=== PATIENT | female | born 1945 | race Caucasian/White ===

== ENCOUNTER → 2017-01-10 | Outpatient (CLI) | payer BC ==
[~2017-01-10] MED LIST: ALBUAER19 INH; ASPI81CH2 PO; ASTN NAE; CHOL100010 PO; CITRICEL PO; EFF375 PO; EFF50 PO; ESOM20CA PO; FLUT0.15 NAE; FLVHFA44 INH; FRN PO; ICAPS PO; LOSA1TAB PO; MULT-506 PO; OMEG10007 PO; PROB1TAB16 PO; SYSTANE ULTRA OP
--- NOTE | 2017-01-10 13:22 | DIAGNOSTIC IMAGING REPORT ---
CHEST 2 VIEWS ROUTINE HISTORY: Atypical chest pain. COMPARISON: None. FINDINGS: The lungs are clear. Cardiac silhouette is normal in size. No pleural effusions. No pneumothorax. IMPRESSION: No acute process. Electronically signed by: Robert Lynch M.D. 01/10/2017 1:21 PM Dictated Date/Time: 01/10/2017 1:19 PM
== END | disposition home or self-care (01) ==
LOC: C.RAD1850 13:05
PROVIDERS: ATTEND Internal Medicine
DX: R07.89 Other chest pain (principal)

== ENCOUNTER → 2017-04-30 | Outpatient (CLI) | payer BC | END | disposition home or self-care (01) | LOC: C.LAB1850 12:19 | PROVIDERS: ATTEND Internal Medicine | DX: R07.89 Other chest pain (principal) ==

== ENCOUNTER → 2017-09-01 | Outpatient (CLI) | payer BC ==
--- NOTE | 2017-09-02 07:36 | MAMMOGRAPHY REPORT ---
BILATERAL DIGITAL SCREENING MAMMOGRAM WITH CAD: 09/01/2017 CLINICAL HISTORY: Routine screening. Patient has no complaints. TECHNIQUE: Bilateral CC and MLO views were obtained. Current study was also evaluated with a Compute r Aided Detection (CAD) system. COMPARISON: Comparison is made to exams dated: 08/30/2016 mammogram, 08/28/2015 mammogram, 08/25/2014 mammogram, 08/24/2013 mammogram, 08/17/2012 mammogram, and 08/07/2011 mammogram - [facility]. BREAST COMPOSITION: There are scattered areas of fibroglandular density in both breasts. FINDINGS: There are large benign rim calcifications in the left breast, and a grouping of punctate m icrocalcifications in the right upper outer quadrant that appears stable dating back to at least 07/18, therefore likely benign. No new suspicious mass, architectural distortion or cluster of micro calcifications is seen. IMPRESSION: ACR BI-RADS CATEGORY 2: BENIGN There is no mammographic evidence of malignancy. A 1 year screening mammogram is recommended. The pa tient will receive written notification of the results. Approximately 10% of breast cancers are not detected with mammography. A negative mammographic report should not delay biopsy if a clinically suggestive mass is present. Chari Flower M.D. ay/:09/01/2017 15:07:11 Blankbook Stitching Machine Operator: Fang Martinez, [facility] letter sent: Normal 1/2 BI-RADS Code: ACR BI-RADS Category 2: Benign
== END | disposition home or self-care (01) ==
LOC: C.MAMM 11:04
PROVIDERS: ATTEND Internal Medicine
DX: Z12.31 Encounter for screening mammogram for malignant neoplasm of breast (principal)

== ENCOUNTER → 2017-09-15 | Outpatient (CLI) | payer BC ==
[2017-09-15 10:57] LABS: BASO % 0.3 %; BASO ABS # 0.01 K/uL (0-0.2); COMPLETE YES; EOS % 4.1 %; HEMATOCRIT 41.8 % (37-47); IG% 0.3 %; LYMPH % 25.3 %; MEAN CELL VOLUME 93.7 fL (80-100); MEAN CORPUSCULAR HEMOGLOBIN 31.4 pg (25-34); MEAN CORPUSCULAR HGB CONC 33.5 g/dl (32-36); MEAN PLATELET VOLUME 10.9 fL (7.4-10.4); MONO % 10.9 %; NEUT % 59.1 %; PLATELET COUNT 221 K/uL (130-400); RED BLOOD COUNT 4.46 M/uL (4.2-5.4); WHITE BLOOD COUNT 3.95 K/uL (4.8-10.8)
[2017-09-15 11:23] LABS: ALT/SGPT 25 U/L (12-78); AST/SGOT 20 U/L (15-37); BLOOD UREA NITROGEN 20 mg/dl (7-18); BUN/CREATININE RATIO 25.1 (10-20); CALCIUM 8.9 mg/dl (8.5-10.1); CARBON DIOXIDE 32 mmol/L (21-32); CHLORIDE 107 mmol/L (98-107); CHOLESTEROL 211 mg/dl (0-200); GLUCOSE 103 mg/dl (70-99); SODIUM 142 mmol/L (136-145); TRIGLYCERIDES 104 mg/dl (0-150); VERY LOW DENSITY LIPOPROT CALC 21 mg/dl
[2017-09-15 11:35] LABS: CHOLESTEROL/HDL RATIO 3.6; HDL CHOLESTEROL 58 mg/dl; LDL CHOLESTEROL CALCULATED 132 mg/dl
== END | disposition home or self-care (01) ==
LOC: C.LAB1850 09:55
PROVIDERS: ATTEND Internal Medicine
DX: E78.5 Hyperlipidemia, unspecified (principal); I10 Essential (primary) hypertension; R07.89 Other chest pain

== ENCOUNTER → 2017-09-30 | Outpatient (CLI) | payer BC ==
--- NOTE | 2017-09-30 12:25 | DIAGNOSTIC IMAGING REPORT ---
SI JOINTS 3 OR MORE VIEWS, L-SPINE MIN 4 VIEWS ROUTINE HISTORY: 71 years-old Female M54.5 Low back [id number] acute low back pain. No reported trauma. COMPARISON: None available TECHNIQUE: 3 views of the SI joints and 5 views of the lumbar spine FINDINGS: SI JOINTS: Mild to moderate degenerative changes of the bilateral SI joints and femoral acetabular joints. There is no acute fracture, dislocation or erosive changes to suggest sacroiliitis. Phleboliths of the pelvis are noted. LUMBAR SPINE: There are 5 lumbar type vertebral segments present. No spondylolysis or spondylolisthesis. Moderate to severe facet arthropathy at L4-L5 and L5-S1. No compression deformity. Moderate multilevel intervertebral disc space narrowing with mild multilevel endplate spurring. There is atherosclerosis of the aorta. Moderate stool Throughout suggests constipation. IMPRESSION: 1. No acute fracture or subluxation of the lumbar spine or sacroiliac joints. 2. Moderate to severe facet arthropathy at L4-L5 and L5-S1. Moderate multilevel intervertebral disc space narrowing and mild multilevel endplate spurring. The above report was generated using voice recognition software. It may contain grammatical, syntax or spelling errors. Electronically signed by: Ajay Kilgore M.D. 09/30/2017 12:23 PM Dictated Date/Time: 09/30/2017 12:21 PM
== END | disposition home or self-care (01) ==
LOC: C.RAD1850 11:49
PROVIDERS: ATTEND Physician Assistant
DX: M54.5 Low back pain (principal)

== ENCOUNTER 2018-01-12 08:15 | Emergency (ER) | payer BC ==
[~2018-01-12] VITALS: Ht 162.6 cm; Wt 60.8 kg
[2018-01-12] MEDS ORDERED: SODIUM CHLORIDE 0.9% 1000ML 1,000 ML IV STA (08:26)
[2018-01-12 08:28] VITALS: TEMP 36.4; O2SAT 99; Ht 162.6 cm; Wt 60.8 kg
--- NOTE | 2018-01-12 08:32 | EMERGENCY ROOM VISIT NOTE ---
History Report prepared by Jed: Louis Moya Under the Supervision of: Dr. Baltazar Hall D.O. First contact with patient: 08:21 Chief Complaint: SYNCOPE Stated Complaint: SYNCOPE History of Present Illness The patient is a 72 year old female who presents to the Emergency Room with complaints of 1 episode of syncope that occurred about 1 hour ago. She has a past medical history of hypertension, migraines, cystic ovaries, and a bilateral oophorectomy. Over the past three days, the patient has been experiencing upper respiratory symptoms including a dry cough, sinus congestion , and generalized body cramps. She notes that she has had a decreased PO intake , solids and liquids, over this time as well. This morning when she attempted to get up out of bed, she suddenly felt dizzy and clammy. She then lost consciousness, falling forward. Her states that she hit the floor "pretty hard." She denies any headaches, chest pain, shortness of breath, nausea , vomiting, abdominal pain, diarrhea, melena, hematochezia, or leg swelling. This has never happened to her before. She denies any known problems with her electrolytes. Source of History: patient Onset: 1 hour ago Position: other (Global) Symptom Intensity: Quality: other (syncope) Timing: resolved Associated Symptoms: + cough, No headache, No chest pain, No SOB, No nausea , No vomiting, No abdominal pain, No melena, No hematochezia, No diarrhea Note: She is also experiencing sinus congestion with generalized body cramping. Review of Systems See HPI for pertinent positives & negatives. A total of 10 systems reviewed and were otherwise negative. Past Medical & Surgical Medical Problems: (1) HTN (hypertension) (2) Migraine Surgical Problems: (1) H/O bilateral oophorectomy Family History Patient reports no known family medical history. Social History Smoking Status: Never Smoker Smokeless Tobacco Use: No Drug Use: none Marital Status: Housing Status: lives with significant other Occupation Status: retired Current/Historical Medications Scheduled Aspirin (Aspirin), 81 MG PO QAM Cholecalciferol (D 1999), 2,000 UNITS PO DAILY Fish Oil ([place]-3), 1 CAP PO QAM Fluticasone Propionate (Nasal) (Flonase Allergy Relief), 1 SPRAY JOSE QAM Losartan Potassium (Cozaar), 25 MG PO QAM Multivitamin (Multivitamin), 1 TAB PO QAM Probiotic Product (Probiotic), 1 TAB PO QAM Venlafaxine Hcl (Effexor), 75 MG PO DAILY Scheduled PRN Azelastine Hcl (Astelin Nasal [place]), 1-2 SPRAYS JOSE QAM PRN for Seasonal Allergies Allergies Coded Allergies: No Known Allergies (Unverified , 01/12/18) Physical Exam Vital Signs Date Time Temp Pulse Resp B/P (MAP) Pulse Ox O2 Delivery O2 Flow Rate FiO2 01/12/18 11:53 69 17 136/66 97 01/12/18 11:00 67 16 137/63 97 Room Air 01/12/18 10:00 66 14 132/71 97 Room Air 01/12/18 08:52 66 13 114/57 96 Room Air 71 114/56 72 105/55 01/12/18 08:28 36.4 64 16 115/68 99 Room Air 01/12/18 08:28 99 Room Air 01/12/18 08:26 63 Physical Exam GENERAL: Patient is awake, alert, and in no acute distress. Patient is resting comfortably and showing no signs of anxiety EYES: The conjunctivae are clear. The pupils are round and reactive. EARS, NOSE, MOUTH AND THROAT: The nose is without any evidence of any deformity. Mucous membranes are moist tongue is midline NECK: The neck is nontender and supple. RESPIRATORY: Normal respiratory effort is noted there is no evidence of wheezing rhonchi or rales CARDIOVASCULAR: Regular rate and rhythm noted there no murmurs rubs or gallops normal S1 normal S2 GASTROINTESTINAL: The abdomen is soft. Bowel sounds are present in all quadrants. Abdomen is nontender BACK: No midline tenderness or or step-off noted range of motion in flexion extension as well as rotation no signs of muscle spasm noted MUSCULOSKELETAL/EXTREMITIES: There is no evidence of gross deformity full range of motion is noted in the hips and shoulders SKIN: There is no obvious evidence of any rash. There are no petechiae, pallor or cyanosis noted. NEUROLOGIC: Patient is awake alert and oriented x3 strength is symmetric patellar reflexes are 2+ bilaterally Medical Decision & Procedures ER Provider Diagnostic Interpretation: Radiology results as stated below per my review and radiologist interpretation: CHEST ONE VIEW PORTABLE HISTORY: 72 years-old Female EVALUATE ALTERED MENTAL STATUS/WEAKNESS acutely altered mental status with weakness and syncope COMPARISON: Chest radiographs to 06/03/2017 TECHNIQUE: Portable AP view of the chest FINDINGS: Cardiomediastinal and hilar silhouettes are within normal limits. There is no pneumothorax, pleural effusion, focal airspace consolidation or overt pulmonary edema. The bones of the chest appear grossly intact. IMPRESSION: No acute process. The above report was generated using voice recognition software. It may contain grammatical, syntax or spelling errors. Electronically signed by: Ajay Kilgore M.D. 01/12/2018 8:42 AM Dictated Date/Time: 01/12/2018 8:41 AM Laboratory Results 01/12/18 09:00 Red Blood Count 4.39, Mean Corpuscular Volume 93.4, Mean Corpuscular Hemoglobin 31.4, Mean Corpuscular Hemoglobin Concent 33.7, Mean Platelet Volume 10.9, Neutrophils (%) (Auto) 76.1, Lymphocytes (%) (Auto) 12.3, Monocytes (%) (Auto) 10.2, Eosinophils (%) (Auto) 1.2, Basophils (%) (Auto) 0.2, Neutrophils # (Auto ) 4.35, Lymphocytes # (Auto) 0.70, Monocytes # (Auto) 0.58, Eosinophils # (Auto ) 0.07, Basophils # (Auto) 0.01 01/12/18 09:00 Test 01/12/18 09:00 01/12/18 10:50 White Blood Count 5.71 K/uL (4.8-10.8) Red Blood Count 4.39 M/uL (4.2-5.4) Hemoglobin 13.8 g/dL (12.0-16.0) Hematocrit 41.0 % (37-47) Mean Corpuscular Volume 93.4 fL (80-100) Mean Corpuscular Hemoglobin 31.4 pg (25-34) Mean Corpuscular Hemoglobin Concent 33.7 g/dl (32-36) Platelet Count 111 K/uL (130-400) Mean Platelet Volume 10.9 fL (7.4-10.4) Neutrophils (%) (Auto) 76.1 % Lymphocytes (%) (Auto) 12.3 % Monocytes (%) (Auto) 10.2 % Eosinophils (%) (Auto) 1.2 % Basophils (%) (Auto) 0.2 % Neutrophils # (Auto) 4.35 K/uL (1.4-6.5) Lymphocytes # (Auto) 0.70 K/uL (1.2-3.4) Monocytes # (Auto) 0.58 K/uL (0.11-0.59) Eosinophils # (Auto) 0.07 K/uL (0-0.5) Basophils # (Auto) 0.01 K/uL (0-0.2) RDW Standard Deviation 42.8 fL (36.4-46.3) RDW Coefficient of Variation 12.6 % (11.5-14.5) Immature Granulocyte % (Auto) 0.0 % Immature Granulocyte # (Auto) 0.00 K/uL (0.00-0.02) Prothrombin Time 10.1 SECONDS (9.0-12.0) Prothromb Time International Ratio 1.0 (0.9-1.1) Activated Partial Thromboplast Time 24.3 SECONDS (21.0-31.0) Partial Thromboplastin Ratio 0.9 Anion Gap 7.0 mmol/L (3-11) Est Creatinine Clear Calc Drug Dose 47.4 ml/min Estimated GFR () 73.0 Estimated GFR (Non- 63.0 BUN/Creatinine Ratio 16.6 (10-20) Calcium Level 8.4 mg/dl (8.5-10.1) Magnesium Level 2.0 mg/dl (1.8-2.4) Total Bilirubin 0.4 mg/dl (0.2-1) Direct Bilirubin 0.1 mg/dl (0-0.2) Aspartate Amino Transf (AST/SGOT) 24 U/L (15-37) Alanine Aminotransferase (ALT/SGPT) 20 U/L (12-78) Alkaline Phosphatase 74 U/L (45-117) Total Creatine Kinase 63 U/L (26-192) Creatine Kinase MB 0.7 ng/ml (0.5-3.6) Creatine Kinase MB Ratio 1.1 (0-3.0) Troponin I < 0.015 ng/ml (0-0.045) Total Protein 6.6 gm/dl (6.4-8.2) Albumin 3.3 gm/dl (3.4-5.0) Thyroid Stimulating Hormone (TSH) 1.250 uIu/ml (0.300-4.500) Influenza Type A Antigen Neg for Influ A (NEG) Influenza Type B Antigen POS for Influ B (NEG) Urine Color YELLOW Urine Appearance CLEAR (CLEAR) Urine pH 7.5 (4.5-7.5) Urine Specific [place] 1.007 (1.000-1.030) Urine Protein NEG (NEG) Urine Glucose (UA) NEG (NEG) Urine Ketones NEG (NEG) Urine Occult Blood NEG (NEG) Urine Nitrite NEG (NEG) Urine Bilirubin NEG (NEG) Urine Urobilinogen NEG (NEG) Urine Leukocyte Esterase NEG (NEG) Laboratory results per my review. Medications Administered Medications (Trade) Dose Ordered Sig/Tucker Route Start Time Stop Time Status Last Admin Dose Admin Sodium Chloride 1,000 ml @ 999 mls/hr Q1H1M STAT IV 01/12/18 08:26 01/12/18 09:26 DC 01/12/18 09:04 999 MLS/HR ECG Per My Interpretation Indication: syncope Rate (beats per minute): 66 Rhythm: normal sinus Findings: T-wave inversion (Lateral), other (No PVC) Comparison ECG Date: 12/10/2010 Change: Findings are new ED Course 0821: The patient was evaluated in room B12. A complete history and physical examination were performed. 0826: Ordered NSS 1,000 ml @ 999 mls/hr IV 1105: The patient is feeling significantly better at this time. 1145: Upon reevaluation, the patient is resting. I discussed the results and treatment plan with her. She verbalized agreement of the treatment plan. She was discharged home. Medical Decision Differential diagnosis: Etiologies such as vasovagal event, infection, hypoglycemia, electrolyte abnormalities, cardiac sources, intracerebral event, toxicologic, neurologic, as well as others were entertained. Nursing notes reviewed. Additional history is obtained from the patient significant other. The patient is a 72-year-old female who presented to emergency department after having a syncopal episode. The patient presented to the emergency department after having a syncopal episode. She has been having a few days of febrile illness and feeling ill. The patient did not have any focal neurologic deficits. I discussed the patient's laboratory and radiographic studies with her. She was treated with IV fluids and was feeling much better on subsequent reevaluation. She was found to have a flu swab that was positive. The patient was encouraged to rest and avoid any strenuous activity. I also encouraged her to follow-up with her primary care physician for further evaluation and for possible further workup for syncope. I also encouraged her to return to the emergency department immediately if symptoms change worsen or the need arises. Medication Reconcilliation Current Medication List: was personally reviewed by me Blood Pressure Screening Patient's blood pressure: Normal blood pressure Blood pressure disposition: Did not require urgent referral Impression Primary Impression: Influenza Additional Impression: Syncope Scribe Attestation The scribe's documentation has been prepared under my direction and personally reviewed by me in its entirety. I confirm that the note above accurately reflects all work, treatment, procedures, and medical decision making performed by me. Departure Information Dispostion Home / Self-Care Referrals Baltazar Wilson M.D. (PCP) Forms HOME CARE DOCUMENTATION FORM, IMPORTANT VISIT INFORMATION Patient Instructions ED Flu, My [facility], Syncope Additional Instructions Drink plenty of clear liquids. Continue using Motrin and Tylenol as directed for fever and body aches. Follow-up with your family doctor for reevaluation. Return to the emergency department immediately if symptoms change worsening of the need arises. Problem Qualifiers Additional Impression: Syncope Syncope type: unspecified Qualified Codes: R55 - Syncope and collapse
--- NOTE | 2018-01-12 08:43 | DIAGNOSTIC IMAGING REPORT ---
CHEST ONE VIEW PORTABLE HISTORY: 72 years-old Female EVALUATE ALTERED MENTAL STATUS/WEAKNESS acutely altered mental status with weakness and syncope COMPARISON: Chest radiographs to 06/03/2017 TECHNIQUE: Portable AP view of the chest FINDINGS: Cardiomediastinal and hilar silhouettes are within normal limits. There is no pneumothorax, pleural effusion, focal airspace consolidation or overt pulmonary edema. The bones of the chest appear grossly intact. IMPRESSION: No acute process. The above report was generated using voice recognition software. It may contain grammatical, syntax or spelling errors. Electronically signed by: Ajay Kilgore M.D. 01/12/2018 8:42 AM Dictated Date/Time: 01/12/2018 8:41 AM
[2018-01-12 09:14] LABS: BASO % 0.2 %; BASO ABS # 0.01 K/uL (0-0.2); EOS % 1.2 %; EOS ABS # 0.07 K/uL (0-0.5); HEMOGLOBIN 13.8 g/dL (12.0-16.0); LYMPH % 12.3 %; MEAN CELL VOLUME 93.4 fL (80-100); MEAN CORPUSCULAR HEMOGLOBIN 31.4 pg (25-34); MEAN CORPUSCULAR HGB CONC 33.7 g/dl (32-36); MEAN PLATELET VOLUME 10.9 fL (7.4-10.4); MONO % 10.2 %; MONO ABS # 0.58 K/uL (0.11-0.59); NEUT % 76.1 %; NEUT ABS # 4.35 K/uL (1.4-6.5); PLATELET COUNT 111 K/uL (130-400); RED CELL DISTRIBUTION WIDTH CV 12.6 % (11.5-14.5); RED CELL DISTRIBUTION WIDTH SD 42.8 fL (36.4-46.3); WHITE BLOOD COUNT 5.71 K/uL (4.8-10.8)
[2018-01-12 09:26] LABS: PTT PATIENT 24.3 SECONDS (21.0-31.0)
[2018-01-12 09:29] LABS: ALBUMIN 3.3 gm/dl (3.4-5.0); ALT/SGPT 20 U/L (12-78); BLOOD UREA NITROGEN 15 mg/dl (7-18); CALCIUM 8.4 mg/dl (8.5-10.1); CARBON DIOXIDE 29 mmol/L (21-32); GLUCOSE 135 mg/dl (70-99); POTASSIUM 3.7 mmol/L (3.5-5.1); SODIUM 137 mmol/L (136-145)
[2018-01-12] MEDS ORDERED: VENL75TA4 PO (09:37)
[2018-01-12] MEDS ORDERED: CHOL1TAB76 PO (09:38)
[2018-01-12 09:40] LABS: ALKALINE PHOSPHATASE 74 U/L (45-117); AST/SGOT 24 U/L (15-37); CKMB 0.7 ng/ml (0.5-3.6); TOTAL PROTEIN 6.6 gm/dl (6.4-8.2)
[2018-01-12 10:47] LABS: INFLUENZA B ANTIGEN POS for Influ B (NEG)
[2018-01-12 11:53] VITALS: BP 136/66; PULSE 69; O2SAT 97
== END 2018-01-12 11:57 | disposition home or self-care (01) ==
LOC: EDBD 08:15 → C.EDB 08:16
DX: J11.1 Influenza due to unidentified influenza virus with other respiratory manifestations (principal); R55 Syncope and collapse; I10 Essential (primary) hypertension; G43.909 Migraine, unspecified, not intractable, without status migrainosus; Z79.82 Long term (current) use of aspirin

== ENCOUNTER 2018-01-15 21:05 | Emergency (ER) | payer BC ==
[~2018-01-15] VITALS: Ht 162.6 cm; Wt 59.2 kg
[~2018-01-15 21:05] MED LIST changes: -ALBUAER19 INH; -CHOL100010 PO; +CHOL1TAB76 PO; -CITRICEL PO; -EFF375 PO; -EFF50 PO; -ESOM20CA PO; -FLVHFA44 INH; -FRN PO; -ICAPS PO; -SYSTANE ULTRA OP; +VENL75TA4 PO
[2018-01-15 21:14] VITALS: TEMP 36.6; O2SAT 95; Ht 162.6 cm; Wt 59.2 kg
[2018-01-15] MEDS ORDERED: ARTISOL12 OP (22:51)
[2018-01-15] MEDS ORDERED: MULT-190 PO (22:51)
[2018-01-15 22:54] LABS: BASO % 0.3 %; BASO ABS # 0.01 K/uL (0-0.2); HEMATOCRIT 40.8 % (37-47); HEMOGLOBIN 14.1 g/dL (12.0-16.0); IG# 0.01 K/uL (0.00-0.02); LYMPH ABS # 0.96 K/uL (1.2-3.4); MEAN CELL VOLUME 91.7 fL (80-100); MEAN CORPUSCULAR HEMOGLOBIN 31.7 pg (25-34); MEAN CORPUSCULAR HGB CONC 34.6 g/dl (32-36); MEAN PLATELET VOLUME 10.3 fL (7.4-10.4); MONO % 12.1 %; MONO ABS # 0.43 K/uL (0.11-0.59); NEUT % 60.3 %; NEUT ABS # 2.15 K/uL (1.4-6.5); PLATELET COUNT 175 K/uL (130-400); RED CELL DISTRIBUTION WIDTH CV 12.2 % (11.5-14.5); RED CELL DISTRIBUTION WIDTH SD 41.6 fL (36.4-46.3); WHITE BLOOD COUNT 3.56 K/uL (4.8-10.8)
--- NOTE | 2018-01-15 22:56 | DIAGNOSTIC IMAGING REPORT ---
CHEST ONE VIEW PORTABLE CLINICAL HISTORY: 72 years-old Female presenting with EVALUATE WEAKNESS. TECHNIQUE: Portable upright AP view of the chest was obtained. COMPARISON: 01/12/2018. FINDINGS: Cardiomediastinal silhouette normal. Lungs and pleural spaces clear. Osseous structures normal. Upper abdomen normal. IMPRESSION: 1. No acute cardiopulmonary disease. Electronically signed by: Chano Peryr M.D. 01/15/2018 10:55 PM Dictated Date/Time: 01/15/2018 10:54 PM
--- NOTE | 2018-01-15 23:08 | DIAGNOSTIC IMAGING REPORT ---
HEAD WITHOUT CONTRAST (CT) CLINICAL HISTORY: 72 years-old Female presenting with EVALUATE WEAKNESS. TECHNIQUE: Multidetector CT imaging of the head was performed without the use of intravenous contrast. IV contrast: None. A dose lowering technique was used consistent with the principles of ALARA (as low as reasonably achievable). COMPARISON: 12/09/2010. CT DOSE (mGy.cm): The estimated cumulative dose is 844.62 mGy.cm. FINDINGS: Heating And Cooling Technician topogram: Unremarkable. Ventricles and sulci normal in size. Brain parenchyma normal in appearance with preserved kline-white differentiation. No mass effect or midline shift. No hemorrhage or acute territorial infarct. No extra-axial fluid collection. Paranasal sinuses and mastoid air cells clear. Calvarium intact. IMPRESSION: 1. No acute intracranial abnormality. Electronically signed by: Chano Perry M.D. 01/15/2018 11:06 PM Dictated Date/Time: 01/15/2018 11:04 PM
[2018-01-15 23:20] LABS: ALBUMIN 3.5 gm/dl (3.4-5.0); CALCIUM 8.6 mg/dl (8.5-10.1); CREATININE 0.67 mg/dl (0.60-1.20); POTASSIUM 3.7 mmol/L (3.5-5.1)
[2018-01-15 23:30] LABS: TOTAL PROTEIN 7.1 gm/dl (6.4-8.2)
[2018-01-15 23:49] VITALS: BP 196/86; PULSE 76
[2018-01-15] MEDS ORDERED: LORAZEPAM 0.5 MG TAB SL STA (23:54)
--- NOTE | 2018-01-16 01:07 | EMERGENCY ROOM VISIT NOTE ---
History Report prepared by Jed: Nieves Alexander Under the Supervision of: Dr. Lenin Paz D.O. First contact with patient: 22:17 Chief Complaint: FALL Stated Complaint: TWITCHING IN UPPER BODY, FALL, HIT HEAD History of Present Illness The patient is a 72 year old female who presents to the Emergency Room with complaints of intermittent body twitching beginning this morning. The patient states she was diagnosed with the flu on Friday. She reports that she had a cough and a fever. On Friday morning, she had an episode of a fall where she hit her head. She reports she came into the ED on Friday for her flu like symptoms and didn't tell the ED physician about her fall. The patient reports her flu symptoms have since resolved but now she is having twitching. She reports her twitching is only present when she is resting. Movement does result twitching. There is no pain associated with it. She has never had this before. Pt denies change in vision, headache, neck pain, fevers, chest pain, shortness of breath, nausea, vomiting, diarrhea, pain with urination, and melena. Source of History: patient Onset: this morning Position: other (generalized) Quality: other (body twitching) Timing: intermittent Associated Symptoms: No fevers, No neck pain, No chest pain, No SOB, No nausea, No vomiting, No urinary symptoms Review of Systems See HPI for pertinent positives & negatives. A total of 10 systems reviewed and were otherwise negative. Past Medical & Surgical Medical Problems: (1) HTN (hypertension) (2) Migraine Surgical Problems: (1) H/O bilateral oophorectomy Family History Patient reports no known family medical history. Social History Smoking Status: Never Smoker Drug Use: none Marital Status: Housing Status: lives with significant other Occupation Status: retired Current/Historical Medications Scheduled Artificial Tear Solution (Artificial Tears), 1 DROPS OP BID Aspirin (Aspirin), 81 MG PO HS Cholecalciferol (D 1999), 2,000 UNITS PO DAILY Fish Oil ([place]-3), 1 CAP PO QAM Fluticasone Propionate (Nasal) (Flonase Allergy Relief), 1 SPRAY JOSE QAM Losartan Potassium (Cozaar), 25 MG PO QAM Multivitamin (Multivitamin), 1 TAB PO QAM Ocuvite Preservision (Ocuvite Preservision), 1 TAB PO DAILY Probiotic Product (Probiotic), 1 TAB PO QAM Venlafaxine Hcl (Effexor), 75 MG PO DAILY Scheduled PRN Azelastine Hcl (Astelin Nasal [place]), 1-2 SPRAYS JOSE QAM PRN for Seasonal Allergies Allergies Coded Allergies: No Known Allergies (Unverified , 01/15/18) Physical Exam Vital Signs Date Time Temp Pulse Resp B/P (MAP) Pulse Ox O2 Delivery O2 Flow Rate FiO2 01/16/18 00:06 01/15/18 23:49 74 162/93 76 184/96 76 196/86 01/15/18 22:41 68 01/15/18 21:14 36.6 76 18 180/98 95 Room Air Physical Exam GENERAL: Sitting up in bed, alert, well appearing, intermittent twitching of the neck/head, talking in full sentences, well nourished, no distress, non- toxic EYE EXAM: normal conjunctiva. PERRL and EOM's intact. OROPHARYNX: no exudate, no erythema, lips, buccal mucosa, and tongue normal and mucous membranes are moist HEAD: Bruising over left frontal region. NECK: supple, no nuchal rigidity, no adenopathy, non-tender LUNGS: Clear to auscultation. Normal chest wall mechanics HEART: no murmurs, S1 normal and S2 normal ABDOMEN: abdomen soft, non-tender, normo-active bowel sounds, no masses, no rebound or guarding. BACK: Back is symmetrical on inspection and there is no deformity, no midline tenderness, no CVA tenderness. SKIN: no rashes and no bruising UPPER EXTREMITIES: upper extremities are grossly normal. LOWER EXTREMITIES: No pitting edema. NEURO EXAM: Normal sensorium, cranial nerves II-XII intact, normal speech, no weakness of arms, no weakness of legs. No drift. Finger to nose intact. Gross sensation intact. No twitching with voluntary movements/when distracted. Medical Decision & Procedures ER Provider Diagnostic Interpretation: Radiology results as stated below per my review and the radiologist's interpretation: CHEST ONE VIEW PORTABLE FINDINGS: Cardiomediastinal silhouette normal. Lungs and pleural spaces clear. Osseous structures normal. Upper abdomen normal. IMPRESSION: 1. No acute cardiopulmonary disease. HEAD WITHOUT CONTRAST (CT) FINDINGS: [employer] topogram: Unremarkable. Ventricles and sulci normal in size. Brain parenchyma normal in appearance with preserved kline-white differentiation. No mass effect or midline shift. No hemorrhage or acute territorial infarct. No extra-axial fluid collection. Paranasal sinuses and mastoid air cells clear. Calvarium intact. IMPRESSION: 1. No acute intracranial abnormality. Electronically signed by: Chano Perry M.D. Electronically signed by: Chano Perry M.D. Laboratory Results 01/15/18 22:45 Red Blood Count 4.45, Mean Corpuscular Volume 91.7, Mean Corpuscular Hemoglobin 31.7, Mean Corpuscular Hemoglobin Concent 34.6, Mean Platelet Volume 10.3, Neutrophils (%) (Auto) 60.3, Lymphocytes (%) (Auto) 27.0, Monocytes (%) (Auto) 12.1, Eosinophils (%) (Auto) 0.0, Basophils (%) (Auto) 0.3, Neutrophils # (Auto ) 2.15, Lymphocytes # (Auto) 0.96, Monocytes # (Auto) 0.43, Eosinophils # (Auto ) 0.00, Basophils # (Auto) 0.01 01/15/18 22:45 Test 01/15/18 22:45 01/15/18 23:13 White Blood Count 3.56 K/uL (4.8-10.8) Red Blood Count 4.45 M/uL (4.2-5.4) Hemoglobin 14.1 g/dL (12.0-16.0) Hematocrit 40.8 % (37-47) Mean Corpuscular Volume 91.7 fL (80-100) Mean Corpuscular Hemoglobin 31.7 pg (25-34) Mean Corpuscular Hemoglobin Concent 34.6 g/dl (32-36) Platelet Count 175 K/uL (130-400) Mean Platelet Volume 10.3 fL (7.4-10.4) Neutrophils (%) (Auto) 60.3 % Lymphocytes (%) (Auto) 27.0 % Monocytes (%) (Auto) 12.1 % Eosinophils (%) (Auto) 0.0 % Basophils (%) (Auto) 0.3 % Neutrophils # (Auto) 2.15 K/uL (1.4-6.5) Lymphocytes # (Auto) 0.96 K/uL (1.2-3.4) Monocytes # (Auto) 0.43 K/uL (0.11-0.59) Eosinophils # (Auto) 0.00 K/uL (0-0.5) Basophils # (Auto) 0.01 K/uL (0-0.2) RDW Standard Deviation 41.6 fL (36.4-46.3) RDW Coefficient of Variation 12.2 % (11.5-14.5) Immature Granulocyte % (Auto) 0.3 % Immature Granulocyte # (Auto) 0.01 K/uL (0.00-0.02) Anion Gap 7.0 mmol/L (3-11) Est Creatinine Clear Calc Drug Dose 63.7 ml/min Estimated GFR () 100.4 Estimated GFR (Non- 86.6 BUN/Creatinine Ratio 21.2 (10-20) Calcium Level 8.6 mg/dl (8.5-10.1) Total Bilirubin 0.3 mg/dl (0.2-1) Direct Bilirubin 0.1 mg/dl (0-0.2) Aspartate Amino Transf (AST/SGOT) 22 U/L (15-37) Alanine Aminotransferase (ALT/SGPT) 23 U/L (12-78) Alkaline Phosphatase 82 U/L (45-117) Total Creatine Kinase 50 U/L (26-192) Total Protein 7.1 gm/dl (6.4-8.2) Albumin 3.5 gm/dl (3.4-5.0) Thyroid Stimulating Hormone (TSH) 2.430 uIu/ml (0.300-4.500) Urine Color YELLOW Urine Appearance TURBID (CLEAR) Urine pH 8.0 (4.5-7.5) Urine Specific [place] 1.014 (1.000-1.030) Urine Protein NEG (NEG) Urine Glucose (UA) NEG (NEG) Urine Ketones NEG (NEG) Urine Occult Blood NEG (NEG) Urine Nitrite NEG (NEG) Urine Bilirubin NEG (NEG) Urine Urobilinogen NEG (NEG) Urine Leukocyte Esterase NEG (NEG) Urine WBC (Auto) 1-5 /hpf (0-5) Urine RBC (Auto) 0-4 /hpf (0-4) Urine Hyaline Casts (Auto) 0 /lpf (0-5) Urine Epithelial Cells (Auto) 0-5 /lpf (0-5) Urine Bacteria (Auto) NEG (NEG) Laboratory results per my review. Medications Administered Medications (Trade) Dose Ordered Sig/Tucker Route Start Time Stop Time Status Last Admin Dose Admin Lorazepam (Ativan Tab) 0.5 mg NOW STAT SL 01/15/18 23:54 01/15/18 23:55 DC 01/16/18 00:02 0.5 MG ECG Per My Interpretation Indication: other (tremors) Rate (beats per minute): 70 Rhythm: sinus rhythm Findings: no acute ischemic change, no ectopy, other (normal axis) ED Course ED COURSE: Vital signs were reviewed and showed hypertensive The patients medical record was reviewed The above diagnostic studies were performed and reviewed. ED treatments and interventions as stated above. 2222: The patient was evaluated in room B7. A complete history and physical examination was performed. 2352: I updated the patient on her test results. 2354: Ordered Ativan Tab 0.5 mg SL. 0006: Upon reevaluation, the patient is resting comfortably.I discussed my findings with the patient and she understands and agrees with the treatment plan. Based on the patients age, coexisting illnesses, exam and lab findings the decision to treat as an outpatient was made. The patient remained stable while under my care. The patient appeared well at the time of discharge. Medical Decision Differential Diagnosis includes but is not limited to dehydration, stroke, anemia, hypoglycemia, hyponatremia, hypernatremia, urinary tract infection, pneumonia, bronchitis, sepsis, gastroenteritis, additional abdominal pathology, metabolic abnormalities and infections. Patient is a 72-year-old who presents to ER who was recently seen for influenza is now having intermittent twitching. These are only present when resting. It completely resolved with movement. She has no other complaints. She completely neurologically intact. CT head was negative. CBC all BMP, LFTs, bilirubin and TSH was unremarkable. UA was negative. Chest x-ray was unremarkable. Patient was updated bedside. She was given a small dose of Ativan. Patient was updated bedside. She is discharged follow-up PCP as an outpatient. Vital show that she was slightly hypertensive. Discussed with Pt concerning signs and symptoms to watch out for. Pt was instructed to follow up with their PCP and discussed with the patient their option to return to the ED at anytime for persistent or worsening symptoms. The appropriate anticipatory guidance and out-patient management, including indications for return to the emergency department, were explained at length to the patient and understood. Medication Reconcilliation Current Medication List: was personally reviewed by me Blood Pressure Screening Patient's blood pressure: Elevated blood pressure Blood pressure disposition: Referred to PCP Impression Primary Impression: Sadaf Adkins Attestation The scribe's documentation has been prepared under my direction and personally reviewed by me in its entirety. I confirm that the note above accurately reflects all work, treatment, procedures, and medical decision making performed by me. Departure Information Dispostion Home / Self-Care Referrals Baltazar Wilson M.D. (PCP) Forms HOME CARE DOCUMENTATION FORM, IMPORTANT VISIT INFORMATION Patient Instructions ED Weakness [facility] Additional Instructions Please follow up with your primary care doctor with in the next 24 hours. Any worsening of your symptoms, please return to the ED immediately. This includes any fevers greater than 100.4, worsening pain, chest pain, shortness breath, persistent nausea, vomiting, unable to eat or drink, or any other concerning signs or symptoms from your standpoint.
== END 2018-01-16 00:06 | disposition home or self-care (01) ==
LOC: C.EDB 21:07
DX: R25.3 Fasciculation (principal); S09.90XA Unspecified injury of head, initial encounter; W19.XXXA Unspecified fall, initial encounter; I10 Essential (primary) hypertension; Z79.82 Long term (current) use of aspirin

== ENCOUNTER → 2018-03-16 | Outpatient (CLI) | payer BC ==
[~2018-03-16] MED LIST changes: +ARTISOL12 OP; +MULT-190 PO
[2018-03-16 10:35] LABS: HEMATOCRIT 44.5 % (37-47); MEAN CELL VOLUME 94.3 fL (80-100); MEAN CORPUSCULAR HEMOGLOBIN 31.8 pg (25-34); MEAN CORPUSCULAR HGB CONC 33.7 g/dl (32-36); MEAN PLATELET VOLUME 10.6 fL (7.4-10.4); PLATELET COUNT 262 K/uL (130-400); RED CELL DISTRIBUTION WIDTH CV 12.5 % (11.5-14.5); RED CELL DISTRIBUTION WIDTH SD 43.1 fL (36.4-46.3); WHITE BLOOD COUNT 3.78 K/uL (4.8-10.8)
[2018-03-16 11:03] LABS: BLOOD UREA NITROGEN 17 mg/dl (7-18); CARBON DIOXIDE 31 mmol/L (21-32); CHOLESTEROL 238 mg/dl (0-200); CREATININE 0.84 mg/dl (0.60-1.20); GLUCOSE 106 mg/dl (70-99); SODIUM 140 mmol/L (136-145)
[2018-03-16 11:05] LABS: LDL CHOLESTEROL CALCULATED 161 mg/dl
== END | disposition home or self-care (01) ==
LOC: C.LAB1850 09:10
PROVIDERS: ATTEND Internal Medicine
DX: E78.5 Hyperlipidemia, unspecified (principal); I10 Essential (primary) hypertension; G43.909 Migraine, unspecified, not intractable, without status migrainosus